=== PATIENT | female | born 1965 | race Caucasian/White ===

== ENCOUNTER 2016-06-09 12:45 | Inpatient (IN) | payer BC ==
[2016-06-09] MEDS ORDERED: IPRATROPIUM-ALBUTEROL 3 ML NEB INHALATION STA (14:07)
[2016-06-09] MEDS ORDERED: methylPREDNISolone SOD SUCCI 125 MG/2 ML VIAL IV STA (14:07)
--- NOTE | 2016-06-09 14:08 | ED ---
General Adult HPI <Derrek Suggs - Last Filed: 06/09/16 15:03> - General Source: patient, RN notes reviewed Mode of arrival: ambulatory Limitations: no limitations <Srinivas Cabello - Last Filed: 06/09/16 15:07> - General Chief complaint: Shortness of Breath Stated complaint: Dr Sent/Direct Admit Time Seen by Provider: 06/09/16 14:03 - History of Present Illness Initial comments: Patient 51-year-old female significant past medical history for asthma, who presents emergency room today with chief complaint of increased cough congestion over the last week. 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 Patient does admit that she was on antibiotics along with oral steroids that she finished yesterday. States she has felt a little improvement of her symptoms. She denies any other complaints associated symptoms at this time. Patient denies any recent fever, chills, shortness of breath, chest pain, back pain, abdominal pain, nausea or vomiting, numbness or tingling, dysuria or hematuria, constipation or diarrhea, headaches or visual changes, or any other complaints. (Srinivas Cabello) - Related Data Home Medications Medication Instructions Recorded Confirmed Albuterol Nebulized [Ventolin 2.5 mg INHALATION RT-TID PRN 05/28/15 06/09/16 Nebulized] Atorvastatin [Lipitor] 40 mg PO DAILY 05/28/15 06/09/16 Cetirizine HCl [Zyrtec] 10 mg PO DAILY 05/28/15 06/09/16 DULoxetine HCL [Cymbalta] 30 mg PO DAILY 05/28/15 06/09/16 Ibuprofen [Motrin] 800 mg PO DAILY PRN 05/28/15 06/09/16 Montelukast Sodium [Singulair] 10 mg PO DAILY 05/28/15 06/09/16 Omalizumab [Xolair] 300 mg PO Q14D 05/28/15 06/09/16 Pantoprazole Sodium [Protonix] 20 mg PO DAILY 05/28/15 06/09/16 Allergies Allergy/AdvReac Type Severity Reaction Status Date / Time Penicillins AdvReac Rash/Hives Verified 06/09/16 14:54 Review of Systems ROS Other: All systems not noted in ROS Statement are negative. <Derrek Suggs - Last Filed: 06/09/16 15:03> ROS Other: All systems not noted in ROS Statement are negative. <Srinivas Cabello - Last Filed: 06/09/16 15:07> ROS Statement: Those systems with pertinent positive or pertinent negative responses have been documented in the HPI. Past Medical History Past Medical History: Asthma, Cancer, Hyperlipidemia, Sleep Apnea/CPAP/BIPAP Additional Past Medical History / Comment(s): FAILED STRESS TEST, CURRENT CYSTS ON OVARIES, HX OF CERVICAL CA History of Any Multi-Drug Resistant Organisms: None Reported Past Surgical History: Section, Hysterectomy, Tubal Ligation Additional Past Surgical History / Comment(s): PARTIAL HYST, BREAST BX X2, CONE BX CERV CA Past Anesthesia/Blood Transfusion Reactions: Postoperative Nausea & Vomiting ( PONV) Past Psychological History: Anxiety, Depression Smoking Status: Never smoker Past Alcohol Use History: Rare Past Drug Use History: None Reported - Past Family History Father Family Medical History: Cancer Additional Family Medical History / Comment(s): LUNG, COLON <Srinivas Cabello - Last Filed: 06/09/16 15:07> General Exam <Derrek Suggs - Last Filed: 06/09/16 15:03> Limitations: no limitations <Srinivas Cabello - Last Filed: 06/09/16 15:07> - General Exam Comments Initial Comments: General: The patient is awake and alert, in no distress, and does not appear acutely ill. Eye: Pupils are equal, round and reactive to light, extra-ocular movements are intact. No nystagmus. There is normal conjunctiva bilaterally. No signs of icterus. Ears, nose, mouth and throat: There are moist mucous membranes and no oral lesions. Neck: The neck is supple, there is no tenderness or JVD. Cardiovascular: There is a regular rate and rhythm. No murmur, rub or gallop is appreciated. Respiratory: Lungs are clear to auscultation, respirations are non-labored, breath sounds are equal. No wheezes, stridor, rales, or rhonchi. Gastrointestinal: Soft, non-distended, non-tender abdomen without masses or organomegaly noted. There is no rebound or guarding present. No CVA tenderness. Bowel sounds are unremarkable. Musculoskeletal: Normal ROM, no tenderness. Strength 5/5. Sensation intact. Pulses equal bilaterally 2+. Neurological: A&O x 3. CN II-XII intact, There are no obvious motor or sensory deficits. Coordination appears grossly intact. Speech is normal. Skin: Skin is warm and dry and no rashes or lesions are noted. Psychiatric: Cooperative, appropriate mood & affect, normal judgment. (Srinivas Cabello) Course <Derrek Suggs - Last Filed: 06/09/16 15:03> <Srinivas Cabello - Last Filed: 06/09/16 15:07> Vital Signs 06/09/16 06/09/16 06/09/16 13:07 14:19 14:29 Temperature 98.5 F Pulse Rate 86 88 86 Respiratory 20 Rate Blood Pressure 196/83 O2 Sat by Pulse 98 Oximetry - Reevaluation(s) Reevaluation #1: 06/09/16 15:03 Patient does not meet sepsis criteria. Patient reexamined by myself, Dr. Suggs. Patient does have some wheezing and right lower lobe rhonchi. Case discussed with Dr. Shen, who will admit for Dr. Marlow. (Derrek Suggs) Medical Decision Making - Lab Data Result diagrams: 06/09/16 14:27 06/09/16 14:27 <Derrek Suggs - Last Filed: 06/09/16 15:03> - Lab Data Result diagrams: 06/09/16 14:27 06/09/16 14:27 <Srinivas Cabello - Last Filed: 06/09/16 15:07> - Lab Data Lab Results 06/09/16 06/09/16 06/09/16 Range/Units 14:27 14:27 14:48 WBC 5.6 (3.8-10.6) k/uL RBC 4.60 (3.80-5.40) m/uL Hgb 13.5 (11.4-16.0) gm/dL Hct 40.1 (34.0-46.0) % MCV 87.2 (80.0-100.0) fL MCH 29.3 (25.0-35.0) pg MCHC 33.6 (31.0-37.0) g/dL RDW 14.3 (11.5-15.5) % Plt Count 307 (150-450) k/uL Neutrophils % 61 % Lymphocytes % 30 % Monocytes % 7 % Eosinophils % 1 % Basophils % 0 % Neutrophils # 3.4 (1.3-7.7) k/uL Lymphocytes # 1.7 (1.0-4.8) k/uL Monocytes # 0.4 (0-1.0) k/uL Eosinophils # 0.1 (0-0.7) k/uL Basophils # 0.0 (0-0.2) k/uL Sodium 143 (137-145) mmol/L Potassium 3.5 (3.5-5.1) mmol/L Chloride 100 (98-107) mmol/L Carbon Dioxide 34 H (22-30) mmol/L Anion Gap 9 mmol/L BUN 9 (7-17) mg/dL Creatinine 0.70 (0.52-1.04) mg/dL Est GFR (MDRD) Af Amer >60 (>60 ml/min/1.73 sqM) Est GFR (MDRD) Non-Af >60 (>60 ml/min/1.73 sqM) Glucose 101 H (74-99) mg/dL Calcium 9.0 (8.4-10.2) mg/dL Total Bilirubin 1.0 (0.2-1.3) mg/dL AST 30 (14-36) U/L ALT 46 (9-52) U/L Alkaline Phosphatase 115 (38-126) U/L Total Protein 6.7 (6.3-8.2) g/dL Albumin 3.9 (3.5-5.0) g/dL Urine Color Light Yellow Urine Appearance Clear (Clear) Urine pH 7.0 (5.0-8.0) Ur Specific [place] 1.007 (1.001-1.035) Urine Protein Negative (Negative) Urine Glucose (UA) Negative (Negative) Urine Ketones Negative (Negative) Urine Blood Negative (Negative) Urine Nitrite Negative (Negative) Urine Bilirubin Negative (Negative) Urine Urobilinogen <2.0 (<2.0) mg/dL Ur Leukocyte Esterase Negative (Negative) Disposition <Derrek Suggs - Last Filed: 06/09/16 15:03> Time of Disposition: 15:04 <Srinivas Cabello - Last Filed: 06/09/16 15:07> Clinical Impression: Asthmatic bronchitis Disposition: ADMITTED IP TO THIS HOSP Condition: Good
[2016-06-09 14:43] LABS: Basophils % (A) 0 %; CH 29.6; CHCM 34.1; Eosinophils # (A) 0.1 k/uL (0-0.7); Eosinophils % (A) 1 %; HCT 40.1 % (34.0-46.0); HDW 3.03; HGB 13.5 gm/dL (11.4-16.0); Luc # (Auto) 0.06; Luc % (Auto) 1; Lymphocytes # (A) 1.7 k/uL (1.0-4.8); Lymphocytes % (A) 30 %; MCH 29.3 pg (25.0-35.0); MCHC 33.6 g/dL (31.0-37.0); MCV 87.2 fL (80.0-100.0); Mean Platelet Volume 6.8; Monocytes # (A) 0.4 k/uL (0-1.0); Monocytes % (A) 7 %; Neutrophils # (A) 3.4 k/uL (1.3-7.7); Neutrophils % (A) 61 %; RDW 14.3 % (11.5-15.5); WBC 5.6 k/uL (3.8-10.6); WBC (Perox) 5.51
[2016-06-09 14:50] LABS: ALT 46 U/L (9-52); AST 30 U/L (14-36); Alkaline Phosphatase 115 U/L (38-126); Anion Gap 9 mmol/L; Blood Urea Nitrogen 9 mg/dL (7-17); Carbon Dioxide 34 mmol/L (22-30); Chloride 100 mmol/L (98-107); Glucose 101 mg/dL (74-99); Non-African American GFR(MDRD) >60 (>60 ml/min/1.73 sqM); Potassium 3.5 mmol/L (3.5-5.1); Sodium 143 mmol/L (137-145); Total Protein 6.7 g/dL (6.3-8.2)
--- NOTE | 2016-06-09 14:52 | XR ---
EXAMINATION TYPE: XR chest 2V DATE OF EXAM: 06/09/2016 2:42 PM COMPARISON: NONE HISTORY: Shortness of breath TECHNIQUE: Frontal and lateral views of the chest are obtained. FINDINGS: Scattered senescent parenchymal changes noted. Hyperinflation compatible with COPD. No evidence for infiltrate. No evidence for atelectasis. Heart size is stable. Mediastinal structures are stable and grossly unremarkable. No evidence for hilar prominence. Degenerative changes dorsal spine. IMPRESSION: 1. No evidence for acute pulmonary disease.
[2016-06-09 14:59] LABS: Appearance,Urine Clear (Clear); Bilirubin,Urine Negative (Negative); Glucose,Urine (UA) Negative (Negative); Ketones,Urine Negative (Negative); Leukocyte Esterase,Urine Negative (Negative); Nitrite,Urine Negative (Negative); Protein,Urine Negative (Negative); Specific Gravity,Urine 1.007 (1.001-1.035); UA Billing (MACRO vs. MICRO) CHEM; Urobilinogen,Urine <2.0 mg/dL (<2.0)
[2016-06-09] MEDS ORDERED: SODIUM CHLORIDE 0.9% 1,000 ML IV ONE (15:03)
[2016-06-09] MEDS ORDERED: IPRATROPIUM-ALBUTEROL 3 ML NEB INHALATION PRN (15:03)
[2016-06-09] MEDS ORDERED: LEVOFLOXACIN 500MG-D5W PMX 500 MG in DEXTROSE/WATER 1 100ML.BAG IVPB STA (15:05)
[2016-06-09 16:34] VITALS: BMI 49.1
[2016-06-09] MEDS: methylPREDNISolone SOD SUCCI 125 MG/2 ML VIAL IV SCH (18:50)
[2016-06-10] MEDS ORDERED: methylPREDNISolone SOD SUCCI 125 MG/2 ML VIAL ONE
[2016-06-10] MEDS: methylPREDNISolone SOD SUCCI 125 MG/2 ML VIAL IV SCH ×5 (06:30→17:59)
[2016-06-10] MEDS ORDERED: Potassium Replacement Protocol 1 EACH MISC MISCELLANE PRN (08:19)
[2016-06-10 08:52] LABS: Basophils % (A) 0 %; CH 29.9; CHCM 34.2; Eosinophils % (A) 0 %; HCT 39.8 % (34.0-46.0); HDW 3.07; Luc # (Auto) 0.04; Luc % (Auto) 1; Lymphocytes # (A) 0.5 k/uL (1.0-4.8); Lymphocytes % (A) 11 %; MCH 28.7 pg (25.0-35.0); MCHC 32.7 g/dL (31.0-37.0); MCV 87.8 fL (80.0-100.0); Mean Platelet Volume 6.9; Monocytes # (A) 0.1 k/uL (0-1.0); Monocytes % (A) 2 %; Neutrophils # (A) 4.2 k/uL (1.3-7.7); Neutrophils % (A) 86 %; RBC 4.54 m/uL (3.80-5.40); WBC 4.8 k/uL (3.8-10.6); WBC (Perox) 5.07
[2016-06-10 09:04] LABS: ALT 38 U/L (9-52); AST 20 U/L (14-36); Alkaline Phosphatase 100 U/L (38-126); Anion Gap 11 mmol/L; Blood Urea Nitrogen 10 mg/dL (7-17); Calcium 9.2 mg/dL (8.4-10.2); Carbon Dioxide 30 mmol/L (22-30); Chloride 98 mmol/L (98-107); Glucose 262 mg/dL (74-99); Non-African American GFR(MDRD) >60 (>60 ml/min/1.73 sqM); Potassium 4.1 mmol/L (3.5-5.1); Sodium 139 mmol/L (137-145); Total Bilirubin 1.1 mg/dL (0.2-1.3); Total Protein 6.8 g/dL (6.3-8.2)
[2016-06-10] MEDS: BUDESONIDE 0.5 MG/2 ML NEBU INHALATION SCH ×2 (09:27→20:53)
[2016-06-10] MEDS: ENOXAPARIN 40 MG/0.4 ML SYRINGE SQ SCH (09:53)
[2016-06-10] MEDS: MONTELUKAST 10 MG TAB PO SCH (09:53)
[2016-06-10] MEDS: DULoxetine HCL 30 MG CAPSULE.DR PO SCH (09:53)
[2016-06-10] MEDS: guaiFENesin 600 MG TABLET.ER PO SCH ×2 (09:54→21:15)
[2016-06-10] MEDS: PANTOPRAZOLE 40 MG TABLET PO SCH (09:54)
[2016-06-10] MEDS: LORATADINE 10 MG TAB PO SCH (09:55)
[2016-06-10] MEDS: ATORVASTATIN 40 MG TAB PO SCH (09:55)
--- NOTE | 2016-06-10 10:01 | P.HPIM ---
History of Present Illness H&P Date: 06/10/16 Chief Complaint: Cough with shortness of breath This is a 51-year-old female, patient of Dr. Marlow. She has a known past medical history of asthma, hyperlipidemia, obstructive sleep apnea and cervical cancer. Patient presents to the emergency room due to productive cough and shortness of breath that did not improve with outpatient treatment. Patient reports that she's been suffering with symptoms for about 2 weeks. She initially went to the urgent care clinic received steroids and antibiotics. Did not show improvement in symptoms therefore she will return to the clinic she was given dose of IV steroids and IV antibiotics. She went to follow-up with her crystal lapper, Dr. Snyder in the office for her routine Xolair injections. However she was still symptomatic with cough and shortness of breath and he recommended that she presents to the hospital. Therefore patient is now on IV Solu-Medrol and Levaquin for treatment of asthma exacerbation and bronchitis. Chest x-ray was negative. She also is having some elevated blood pressures. When she initially presented to the emergency room her blood pressure was 196/88. Blood pressure this morning is 148/94. She reports being on Norvasc in the past for about a month and her metal tube cutter had discontinued it due to her blood pressure being on the lower side. Patient does admit to having some low-grade temps when she initially started with symptoms. As well as some chills and sweats. She denies any chest pain. Denies any nausea or vomiting, bowel movement changes or urinary symptoms. Pulmonary service has been consulted. Review of Systems Please refer to HPI otherwise unremarkable Past Medical History Past Medical History: Asthma, Cancer, Hyperlipidemia, Sleep Apnea/CPAP/BIPAP Additional Past Medical History / Comment(s): FAILED STRESS TEST, CURRENT CYSTS ON OVARIES, HX OF CERVICAL CA History of Any Multi-Drug Resistant Organisms: None Reported Past Surgical History: Section, Hysterectomy, Tubal Ligation Additional Past Surgical History / Comment(s): PARTIAL HYST, BREAST BX X2, CONE BX CERV CA Past Anesthesia/Blood Transfusion Reactions: Postoperative Nausea & Vomiting ( PONV) Past Psychological History: Anxiety, Depression Smoking Status: Never smoker Past Alcohol Use History: Rare Past Drug Use History: None Reported - Past Family History Father Family Medical History: Cancer Additional Family Medical History / Comment(s): LUNG, COLON Medications and Allergies Home Medications Medication Instructions Recorded Confirmed Type Albuterol Nebulized [Ventolin 2.5 mg INHALATION RT-TID PRN 05/28/15 06/09/16 History Nebulized] Atorvastatin [Lipitor] 40 mg PO DAILY 05/28/15 06/09/16 History Cetirizine HCl [Zyrtec] 10 mg PO DAILY 05/28/15 06/09/16 History DULoxetine HCL [Cymbalta] 30 mg PO DAILY 05/28/15 06/09/16 History Ibuprofen [Motrin] 800 mg PO DAILY PRN 05/28/15 06/09/16 History Montelukast Sodium [Singulair] 10 mg PO DAILY 05/28/15 06/09/16 History Omalizumab [Xolair] 300 mg PO Q14D 05/28/15 06/09/16 History Pantoprazole Sodium [Protonix] 20 mg PO DAILY 05/28/15 06/09/16 History Allergies Allergy/AdvReac Type Severity Reaction Status Date / Time Penicillins Allergy Mild Rash/Hives Verified 06/09/16 16:34 Physical Exam Vitals: Vital Signs Temp Pulse Pulse Pulse Resp BP BP 06/10/16 07:30 97.4 F L 78 20 148/94 06/10/16 00:00 20 06/09/16 22:32 97.6 F 68 20 124/70 06/09/16 20:37 24 06/09/16 20:30 97.1 F L 80 20 132/73 06/09/16 17:00 97.1 F L 80 24 130/76 06/09/16 16:30 24 06/09/16 15:24 98.8 F 78 16 120/61 Pulse Ox 06/10/16 07:30 96 06/10/16 00:00 06/09/16 22:32 97 06/09/16 20:37 06/09/16 20:30 98 06/09/16 17:00 94 L 06/09/16 16:30 06/09/16 15:24 96 Intake and Output 06/09/16 06/10/16 06/10/16 22:59 06:59 14:59 Other: Voiding Method Toilet Toilet # Voids 1 Weight 142.3 kg Head normocephalic Neck supple Lungs few coarse breath sounds posteriorly. A few faint wheezes anterior chest wall Heart regular rate and rhythm S1-S2, no rub or gallop Abdomen is soft nontender nondistended positive bowel sounds no hepatosplenomegaly Extremities no edema Neuro alert and orientated to 3 Results CBC & Chem 7: 06/10/16 08:43 06/10/16 08:43 Labs: Abnormal Lab Results - Last 24 Hours (Table) 06/10/16 06/10/16 Range/Units 08:43 08:43 Lymphocytes # 0.5 L (1.0-4.8) k/uL Glucose 262 H (74-99) mg/dL Thrombosis Risk Factor Assmnt - Choose All That Apply Any of the Below Risk Factors Present?: Yes Each Factor Represents 1 point: Age 41-60 years, Obesity (BMI >25) Other Risk Factors: No Other congenital or acquired thrombophilia - If yes, enter type in comment: No Thrombosis Risk Factor Assessment Total Risk Factor Score: 2 Thrombosis Risk Factor Assessment Level: Low Risk Assessment and Plan Plan: 1. Acute persistent asthma exacerbation: Failed outpatient treatment. Place patient on nebulizer treatments 4 times a day and as needed. Pulmonary service has been consulted. They did add Pulmicort to her treatment 2. Acute tracheobronchitis: Chest x-ray shows no evidence of pneumonia. Continue Levaquin. Patient failed outpatient antibiotic treatment. Check sputum culture 3. Accelerated hypertension present on admission. Continue to monitor blood pressures. Blood pressures have shown improvement. 4. Mild hypokalemia:. Patient received potassium supplement. Potassium normal at 4.1 5. Hyperglycemia secondary to steroids. Patient was started on insulin sliding scale 6. Hyperlipidemia continue Lipitor 7. History of obstructive sleep apnea. Patient has her CPAP from home 8. GI prophylaxis Protonix and DVT prophylaxis Lovenox Time with Patient: Greater than 30 (Greater than 50% of the total time spent in counseling and coordination of care.I performed an examination of the patient and discussed their management with the physician Swimming Pool Installer And Servicer. I have reviewed the Physician Swimming Pool Installer And Servicer's notes and agree with the documented findings and plan of care)
--- NOTE | 2016-06-10 10:25 | P.CNPUL ---
History of Present Illness Consult date: 06/10/16 Requesting physician: Cedrick Marinelli Reason for consult: asthma Chief complaint: Shortness of breath History of present illness: This is a 51-year-old patient being evaluated and examined today on the sixth floor. This patient is well-known to our office. This patient came into the emergency room after being seen and off fast and failed outpatient therapy. The patient had a progressive productive cough and shortness of breath that's been going on for about 2 weeks without any significant improvement. First the patient went to the urgent care clinic where she did receive steroids and antibiotics after not improving she then went to our office and we advised her to the emergency room. The patient is known to have extensive asthma and does receive Xolair injections. Upon examination the patient is resting up in bed in stage she continues to have some shortness of breath with exertion. The patient continues to complain of a cough for over is having difficulty bringing up the secretions stating they are very thick. Review of Systems 14 point review of systems was completed and is negative other than what's noted in the HPI Past Medical History Past Medical History: Asthma, Cancer, Hyperlipidemia, Sleep Apnea/CPAP/BIPAP Additional Past Medical History / Comment(s): FAILED STRESS TEST, CURRENT CYSTS ON OVARIES, HX OF CERVICAL CA History of Any Multi-Drug Resistant Organisms: None Reported Past Surgical History: Section, Hysterectomy, Tubal Ligation Additional Past Surgical History / Comment(s): PARTIAL HYST, BREAST BX X2, CONE BX CERV CA Past Anesthesia/Blood Transfusion Reactions: Postoperative Nausea & Vomiting ( PONV) Past Psychological History: Anxiety, Depression Smoking Status: Never smoker Past Alcohol Use History: Rare Past Drug Use History: None Reported - Past Family History Father Family Medical History: Cancer Additional Family Medical History / Comment(s): LUNG, COLON Medications and Allergies Home Medications Medication Instructions Recorded Confirmed Type Albuterol Nebulized [Ventolin 2.5 mg INHALATION RT-TID PRN 05/28/15 06/09/16 History Nebulized] Atorvastatin [Lipitor] 40 mg PO DAILY 05/28/15 06/09/16 History Cetirizine HCl [Zyrtec] 10 mg PO DAILY 05/28/15 06/09/16 History DULoxetine HCL [Cymbalta] 30 mg PO DAILY 05/28/15 06/09/16 History Ibuprofen [Motrin] 800 mg PO DAILY PRN 05/28/15 06/09/16 History Montelukast Sodium [Singulair] 10 mg PO DAILY 05/28/15 06/09/16 History Omalizumab [Xolair] 300 mg PO Q14D 05/28/15 06/09/16 History Pantoprazole Sodium [Protonix] 20 mg PO DAILY 05/28/15 06/09/16 History Allergies Allergy/AdvReac Type Severity Reaction Status Date / Time Penicillins Allergy Mild Rash/Hives Verified 06/09/16 16:34 Physical Exam Vitals: Vital Signs Temp Pulse Pulse Pulse Resp BP BP 06/10/16 09:49 132/77 06/10/16 07:30 97.4 F L 78 20 148/94 06/10/16 00:00 20 06/09/16 22:32 97.6 F 68 20 124/70 06/09/16 20:37 24 06/09/16 20:30 97.1 F L 80 20 132/73 06/09/16 17:00 97.1 F L 80 24 130/76 06/09/16 16:30 24 06/09/16 15:24 98.8 F 78 16 120/61 Pulse Ox 06/10/16 09:49 06/10/16 07:30 96 06/10/16 00:00 06/09/16 22:32 97 06/09/16 20:37 06/09/16 20:30 98 06/09/16 17:00 94 L 06/09/16 16:30 06/09/16 15:24 96 Intake and Output 06/09/16 06/10/16 06/10/16 22:59 06:59 14:59 Other: Voiding Method Toilet Toilet # Voids 1 Weight 142.3 kg GENERAL EXAM: Alert, active, comfortable in no apparent distress. HEAD: Normocephalic. EYES: Normal reaction of pupils, equal size. NOSE: Clear with pink turbinates. THROAT: No erythema or exudates. NECK: No masses, no JVD. CHEST: No chest wall deformity. LUNGS: Equal air entry which are coarse, prolonged expiratory wheezes noted. CVS: S1 and S2 normal with no audible mumurs, regular rhythm. ABDOMEN: No hepatosplenomegaly, normal bowel sounds, no guarding or rigidity. EXTREMITIES: No edema noted, pedal pulses palpable. SKIN: No rashes CENTRAL NERVOUS SYSTEM: No focal deficits, tone is normal in all 4 extremities. Results - Laboratory Findings CBC and BMP: 06/10/16 08:43 06/10/16 08:43 Abnormal lab findings: Abnormal Labs 06/10/16 06/10/16 08:43 08:43 Lymphocytes # 0.5 L Glucose 262 H Assessment and Plan Plan: Assessment Acute tracheobronchitis Acute exacerbation of severe persistent asthma Obstructive sleep apnea Hypertension Hypokalemia Hyperglycemia related to steroids Hyperlipidemia Plan Medications have been reviewed and will be continued as ordered. We added budesonide to her nebulizer treatments. His next was added to help with secretions. Continue with CPAP at night. Continue with IV steroids and antibiotics. We'll obtain sputum culture and flu swab. Replace electrolytes per protocol. Incentive spirometer initiated and encouraged. We will continue to monitor labs/results and adjust treatment as necessary. I performed an examination of the patient and discussed their management with the nurse practitioner. I have reviewed the nurse practitioner's note and agree with the documented findings and plan of care.
[2016-06-10] MEDS: INSULIN LISPRO (humaLOG) 300 UNIT/3 ML VIAL SQ SCH ×3 (12:03→21:16)
[2016-06-10 12:10] LABS: Glucose,Whole Blood 128 mg/dL (75-99)
[2016-06-10] MEDS: POTASSIUM CHLORIDE ER 20 MEQ TAB.ER PO SCH (12:11)
[2016-06-10] MEDS: IPRATROPIUM-ALBUTEROL 3 ML NEB INHALATION SCH ×3 (12:15→20:53)
[2016-06-10 12:28] LABS: Hemoglobin A1C 6.3 % (4.2-6.1)
[2016-06-10] MEDS: amLODIPine 2.5 MG TAB PO SCH (13:38)
[2016-06-10] MEDS: LEVOFLOXACIN 500MG-D5W PMX 500 MG in DEXTROSE/WATER 1 100ML.BAG IVPB SCH (16:15)
[2016-06-10 17:03] LABS: Glucose,Whole Blood 320 mg/dL (75-99)
[2016-06-10] MEDS ORDERED: INSULIN LISPRO (humaLOG) 300 UNIT/3 ML VIAL SQ ONE (17:47)
[2016-06-10 21:05] LABS: Glucose,Whole Blood 176 mg/dL (75-99)
[2016-06-11] MEDS: methylPREDNISolone SOD SUCCI 125 MG/2 ML VIAL IV SCH ×3 (00:04→13:10)
[2016-06-11 06:58] LABS: Glucose,Whole Blood 174 mg/dL (75-99)
[2016-06-11] MEDS: INSULIN LISPRO (humaLOG) 300 UNIT/3 ML VIAL SQ SCH ×4 (06:59→21:14)
[2016-06-11] MEDS: PANTOPRAZOLE 40 MG TABLET PO SCH (07:02)
[2016-06-11 07:13] LABS: Basophils % (A) 0 %; CH 29.4; Eosinophils % (A) 0 %; HCT 36.7 % (34.0-46.0); HDW 2.87; HGB 12.4 gm/dL (11.4-16.0); Luc # (Auto) 0.05; Luc % (Auto) 1; Lymphocytes # (A) 0.5 k/uL (1.0-4.8); Lymphocytes % (A) 6 %; MCH 30.2 pg (25.0-35.0); MCHC 33.8 g/dL (31.0-37.0); MCV 89.4 fL (80.0-100.0); Mean Platelet Volume 6.8; Monocytes # (A) 0.2 k/uL (0-1.0); Monocytes % (A) 2 %; Neutrophils # (A) 7.9 k/uL (1.3-7.7); Neutrophils % (A) 91 %; RBC 4.11 m/uL (3.80-5.40); RDW 14.4 % (11.5-15.5); WBC 8.7 k/uL (3.8-10.6); WBC (Perox) 9.18
[2016-06-11 07:29] LABS: ALT 27 U/L (9-52); AST 16 U/L (14-36); Alkaline Phosphatase 87 U/L (38-126); Anion Gap 11 mmol/L; Blood Urea Nitrogen 14 mg/dL (7-17); Calcium 9.2 mg/dL (8.4-10.2); Carbon Dioxide 30 mmol/L (22-30); Chloride 102 mmol/L (98-107); Glucose 177 mg/dL (74-99); Non-African American GFR(MDRD) >60 (>60 ml/min/1.73 sqM); Potassium 3.7 mmol/L (3.5-5.1); Sodium 143 mmol/L (137-145); Total Bilirubin 0.6 mg/dL (0.2-1.3); Total Protein 6.5 g/dL (6.3-8.2)
[2016-06-11] MEDS: ENOXAPARIN 40 MG/0.4 ML SYRINGE SQ SCH (07:52)
[2016-06-11] MEDS: guaiFENesin 600 MG TABLET.ER PO SCH ×2 (07:52→20:57)
[2016-06-11] MEDS: ATORVASTATIN 40 MG TAB PO SCH (07:53)
[2016-06-11] MEDS: LORATADINE 10 MG TAB PO SCH (07:53)
[2016-06-11] MEDS: amLODIPine 2.5 MG TAB PO SCH (07:53)
[2016-06-11] MEDS: MONTELUKAST 10 MG TAB PO SCH (07:55)
[2016-06-11] MEDS: DULoxetine HCL 30 MG CAPSULE.DR PO SCH (07:55)
[2016-06-11] MEDS: IBUPROFEN 800 MG TAB PO PRN (08:43)
[2016-06-11] MEDS: BUDESONIDE 0.5 MG/2 ML NEBU INHALATION SCH ×2 (09:09→19:07)
[2016-06-11] MEDS: IPRATROPIUM-ALBUTEROL 3 ML NEB INHALATION SCH ×4 (09:09→19:07)
[2016-06-11 12:42] LABS: Glucose,Whole Blood 167 mg/dL (75-99)
--- NOTE | 2016-06-11 15:16 | P.PN ---
Subjective Patient is doing fairly well today. She does not have any shortness of breath Objective - Vital Signs Vital signs: Vital Signs Temp 98.1 F 06/11/16 13:27 Pulse 83 06/11/16 14:44 Resp 20 06/11/16 13:27 BP 150/93 06/11/16 14:44 Pulse Ox 95 06/11/16 13:27 Intake & Output 06/10/16 06/11/16 06/11/16 18:59 06:59 18:59 Intake Total 400 Balance 400 Intake: Oral 400 Other: Voiding Method Toilet # Voids 1 1 - Exam General: The patient is awake and alert, in no distress Eye: there is normal conjunctiva bilaterally. Neck: The neck is supple, there is no JVD. Cardiovascular: Normal S1-S2, no S3-S4, no murmurs. Respiratory: Lungs clear to auscultation bilaterally Gastrointestinal: Abdomen is soft, nontender Musculoskeletal: There is no pedal edema. Neurological:. Speech is normal. Skin: Skin is warm and dry - Labs CBC & Chem 7: 06/11/16 07:01 06/11/16 07:01 Labs: Abnormal Lab Results - Last 24 Hours (Table) 06/10/16 06/10/16 06/11/16 Range/Units 16:58 21:02 06:56 Neutrophils # (1.3-7.7) k/uL Lymphocytes # (1.0-4.8) k/uL Glucose (74-99) mg/dL POC Glucose (mg/dL) 320 H 176 H 174 H (75-99) mg/dL 06/11/16 06/11/16 06/11/16 Range/Units 07:01 07:01 12:38 Neutrophils # 7.9 H (1.3-7.7) k/uL Lymphocytes # 0.5 L (1.0-4.8) k/uL Glucose 177 H (74-99) mg/dL POC Glucose (mg/dL) 167 H (75-99) mg/dL Microbiology - Last 24 Hours (Table) 06/10/16 16:40 Gram Stain - Preliminary Sputum Sputum Culture - Preliminary Assessment and Plan Plan: 1. Acute persistent asthma exacerbation: Failed outpatient treatment. Place patient on nebulizer treatments 4 times a day and as needed. Pulmonary service has been consulted. They did add Pulmicort to her treatment 2. Acute tracheobronchitis: Chest x-ray shows no evidence of pneumonia. Continue Levaquin. Patient failed outpatient antibiotic treatment. Check sputum culture 3. Accelerated hypertension present on admission. Continue to monitor blood pressures. Blood pressures have shown improvement. 4. Mild hypokalemia:. Patient received potassium supplement. Potassium normal at 4.1 5. Hyperglycemia secondary to steroids. Patient was started on insulin sliding scale 6. Hyperlipidemia continue Lipitor 7. History of obstructive sleep apnea. Patient has her CPAP from home 8. GI prophylaxis Protonix and DVT prophylaxis Lovenox Awaiting clearance by pulmonology for discharge
[2016-06-11] MEDS: LEVOFLOXACIN 500MG-D5W PMX 500 MG in DEXTROSE/WATER 1 100ML.BAG IVPB SCH (16:00)
--- NOTE | 2016-06-11 16:22 | P.PN ---
Subjective This is a 51-year-old patient being evaluated and examined today on the sixth floor. This patient is well-known to our office. This patient came into the emergency room after being seen in the office and had failed outpatient therapy. The patient had a progressive productive cough and shortness of breath that had been going on for about 2 weeks without any significant improvement. First the patient went to the urgent care clinic where she did receive steroids and antibiotics after not improving she then went to our office and we advised her to go to the emergency room. The patient is known to have extensive asthma and does receive Xolair injections. Upon examination the patient's resting up in bed on room air she continues to have some shortness of breath with exertion. The patient continues to complain of a cough and continues to have difficulty with bringing up of secretions. Objective - Vital Signs Vital signs: Vital Signs Temp 97.7 F 06/11/16 16:15 Pulse 77 06/11/16 16:15 Resp 20 06/11/16 16:15 BP 133/67 06/11/16 16:15 Pulse Ox 94 L 06/11/16 16:15 Intake & Output 06/10/16 06/11/16 06/11/16 18:59 06:59 18:59 Intake Total 400 Balance 400 Intake: Oral 400 Other: Voiding Method Toilet # Voids 1 1 1 - Exam GENERAL EXAM: Alert, active, comfortable in no apparent distress. HEAD: Normocephalic. EYES: Normal reaction of pupils, equal size. NOSE: Clear with pink turbinates. THROAT: No erythema or exudates. NECK: No masses, no JVD. CHEST: No chest wall deformity. LUNGS: Equal air entry with no crackles, rhonchi or dullness. Expiratory wheeze CVS: S1 and S2 normal with no audible mumurs, regular rhythm. ABDOMEN: No hepatosplenomegaly, normal bowel sounds, no guarding or rigidity. EXTREMITIES: No edema noted, pedal pulses palpable. SKIN: No rashes CENTRAL NERVOUS SYSTEM: No focal deficits, tone is normal in all 4 extremities. - Labs CBC & Chem 7: 06/11/16 07:01 06/11/16 07:01 Labs: Abnormal Lab Results - Last 24 Hours (Table) 06/10/16 06/10/16 06/11/16 Range/Units 16:58 21:02 06:56 Neutrophils # (1.3-7.7) k/uL Lymphocytes # (1.0-4.8) k/uL Glucose (74-99) mg/dL POC Glucose (mg/dL) 320 H 176 H 174 H (75-99) mg/dL 06/11/16 06/11/16 06/11/16 Range/Units 07:01 07:01 12:38 Neutrophils # 7.9 H (1.3-7.7) k/uL Lymphocytes # 0.5 L (1.0-4.8) k/uL Glucose 177 H (74-99) mg/dL POC Glucose (mg/dL) 167 H (75-99) mg/dL Microbiology - Last 24 Hours (Table) 06/10/16 16:40 Gram Stain - Preliminary Sputum Sputum Culture - Preliminary Assessment and Plan Plan: Assessment Acute tracheobronchitis Acute exacerbation of severe persistent asthma Obstructive sleep apnea Hypertension Hypokalemia Hyperglycemia related to steroids Hyperlipidemia Plan Medications have been reviewed and will be continued as ordered. Continue with nebulizer treatments and pulmonary hygiene. Mucinex was added to help with secretions. Continue with CPAP at night. Continue with IV steroids and antibiotics. Sputum culture pending, influenza was negative. Incentive spirometer initiated and encouraged. We will continue to monitor labs/results and adjust treatment as necessary. I performed an examination of the patient and discussed their management with the nurse practitioner. I have reviewed the nurse practitioner's note and agree with the documented findings and plan of care.
[2016-06-11 17:29] LABS: Glucose,Whole Blood 163 mg/dL (75-99)
[2016-06-11] MEDS: methylPREDNISolone SOD SUCCI 40 MG/ML 1 ML VIAL IV SCH (20:57)
[2016-06-11 21:13] LABS: Glucose,Whole Blood 247 mg/dL (75-99)
[2016-06-12 06:40] LABS: Basophils % (A) 0 %; CH 29.2; CHCM 32.4; Eosinophils % (A) 0 %; HCT 36.7 % (34.0-46.0); HDW 2.74; Luc # (Auto) 0.05; Luc % (Auto) 1; Lymphocytes # (A) 0.7 k/uL (1.0-4.8); Lymphocytes % (A) 9 %; MCH 29.6 pg (25.0-35.0); MCHC 32.7 g/dL (31.0-37.0); MCV 90.7 fL (80.0-100.0); Mean Platelet Volume 6.9; Monocytes # (A) 0.2 k/uL (0-1.0); Monocytes % (A) 3 %; Neutrophils # (A) 6.4 k/uL (1.3-7.7); Neutrophils % (A) 87 %; RBC 4.05 m/uL (3.80-5.40); RDW 14.7 % (11.5-15.5); WBC 7.4 k/uL (3.8-10.6); WBC (Perox) 7.89
[2016-06-12 06:51] LABS: ALT 34 U/L (9-52); AST 15 U/L (14-36); Alkaline Phosphatase 81 U/L (38-126); Anion Gap 9 mmol/L; Blood Urea Nitrogen 12 mg/dL (7-17); Carbon Dioxide 28 mmol/L (22-30); Chloride 104 mmol/L (98-107); Glucose 155 mg/dL (74-99); Non-African American GFR(MDRD) >60 (>60 ml/min/1.73 sqM); Potassium 4.1 mmol/L (3.5-5.1); Sodium 141 mmol/L (137-145); Total Bilirubin 0.6 mg/dL (0.2-1.3); Total Protein 6.2 g/dL (6.3-8.2)
[2016-06-12] MEDS: IPRATROPIUM-ALBUTEROL 3 ML NEB INHALATION SCH ×4 (07:25→19:18)
[2016-06-12] MEDS: BUDESONIDE 0.5 MG/2 ML NEBU INHALATION SCH ×2 (07:25→19:18)
[2016-06-12 07:30] LABS: Glucose,Whole Blood 133 mg/dL (75-99)
[2016-06-12] MEDS: INSULIN LISPRO (humaLOG) 300 UNIT/3 ML VIAL SQ SCH ×4 (07:44→21:04)
[2016-06-12] MEDS: PANTOPRAZOLE 40 MG TABLET PO SCH (07:45)
[2016-06-12] MEDS: MONTELUKAST 10 MG TAB PO SCH (09:17)
[2016-06-12] MEDS: LORATADINE 10 MG TAB PO SCH (09:17)
[2016-06-12] MEDS: DULoxetine HCL 30 MG CAPSULE.DR PO SCH (09:17)
[2016-06-12] MEDS: amLODIPine 2.5 MG TAB PO SCH (09:17)
[2016-06-12] MEDS: guaiFENesin 600 MG TABLET.ER PO SCH ×2 (09:17→21:08)
[2016-06-12] MEDS: ENOXAPARIN 40 MG/0.4 ML SYRINGE SQ SCH (09:17)
[2016-06-12] MEDS: ATORVASTATIN 40 MG TAB PO SCH (09:17)
[2016-06-12] MEDS: methylPREDNISolone SOD SUCCI 40 MG/ML 1 ML VIAL IV SCH ×2 (09:18→21:07)
[2016-06-12] MEDS: IBUPROFEN 800 MG TAB PO PRN (09:59)
--- NOTE | 2016-06-12 12:45 | P.PN ---
Subjective Patient is doing fairly well today. She does not have any shortness of breath Objective - Vital Signs Vital signs: Vital Signs Temp 97.7 F 06/12/16 09:13 Pulse 76 06/12/16 11:34 Resp 18 06/12/16 09:13 BP 132/66 06/12/16 09:13 Pulse Ox 96 06/12/16 09:13 Intake & Output 06/11/16 06/12/16 06/12/16 18:59 06:59 18:59 Intake Total 600 Balance 600 Intake: Oral 600 Other: # Voids 2 2 - Exam General: The patient is awake and alert, in no distress Eye: there is normal conjunctiva bilaterally. Neck: The neck is supple, there is no JVD. Cardiovascular: Normal S1-S2, no S3-S4, no murmurs. Respiratory: Lungs clear to auscultation bilaterally Gastrointestinal: Abdomen is soft, nontender Musculoskeletal: There is no pedal edema. Neurological:. Speech is normal. Skin: Skin is warm and dry - Labs CBC & Chem 7: 06/12/16 06:26 06/12/16 06:26 Labs: Abnormal Lab Results - Last 24 Hours (Table) 06/11/16 06/11/16 06/12/16 Range/Units 17:19 21:03 06:26 Lymphocytes # 0.7 L (1.0-4.8) k/uL Glucose (74-99) mg/dL POC Glucose (mg/dL) 163 H 247 H (75-99) mg/dL Total Protein (6.3-8.2) g/dL 06/12/16 06/12/16 Range/Units 06:26 07:28 Lymphocytes # (1.0-4.8) k/uL Glucose 155 H (74-99) mg/dL POC Glucose (mg/dL) 133 H (75-99) mg/dL Total Protein 6.2 L (6.3-8.2) g/dL Microbiology - Last 24 Hours (Table) 06/10/16 16:40 Gram Stain - Final Sputum Sputum Culture - Final Assessment and Plan Plan: 1. Acute persistent asthma exacerbation: Failed outpatient treatment. Place patient on nebulizer treatments 4 times a day and as needed. Pulmonary service has been consulted. They did add Pulmicort to her treatment 2. Acute tracheobronchitis: Chest x-ray shows no evidence of pneumonia. Continue Levaquin. Patient failed outpatient antibiotic treatment. Check sputum culture 3. Accelerated hypertension present on admission. Continue to monitor blood pressures. Blood pressures have shown improvement. 4. Mild hypokalemia:. Patient received potassium supplement. Potassium normal at 4.1 5. Hyperglycemia secondary to steroids. Patient was started on insulin sliding scale 6. Hyperlipidemia continue Lipitor 7. History of obstructive sleep apnea. Patient has her CPAP from home 8. GI prophylaxis Protonix and DVT prophylaxis Lovenox Awaiting clearance by pulmonology for discharge possibly tomorrow
[2016-06-12 13:02] LABS: Glucose,Whole Blood 162 mg/dL (75-99)
--- NOTE | 2016-06-12 13:39 | P.PN ---
Subjective This is a 51-year-old patient being evaluated and examined today on the sixth floor. This patient is well-known to our office. This patient came into the emergency room after being seen in the office and had failed outpatient therapy. The patient had a progressive productive cough and shortness of breath that had been going on for about 2 weeks without any significant improvement. First the patient went to the urgent care clinic where she did receive steroids and antibiotics after not improving she then went to our office and we advised her to go to the emergency room. The patient is known to have extensive asthma and does receive Xolair injections. Upon examination the patient's resting up in bed on room air she continues to have some shortness of breath with exertion. Patient states she's starting to feel better and her frequency of coughing has decreasing significantly. Objective - Vital Signs Vital signs: Vital Signs Temp 97.7 F 06/12/16 09:13 Pulse 76 06/12/16 11:34 Resp 18 06/12/16 09:13 BP 132/66 06/12/16 09:13 Pulse Ox 96 06/12/16 09:13 Intake & Output 06/11/16 06/12/16 06/12/16 18:59 06:59 18:59 Intake Total 600 Balance 600 Intake: Oral 600 Other: # Voids 2 2 - Exam GENERAL EXAM: Alert, active, comfortable in no apparent distress. HEAD: Normocephalic. EYES: Normal reaction of pupils, equal size. NOSE: Clear with pink turbinates. THROAT: No erythema or exudates. NECK: No masses, no JVD. CHEST: No chest wall deformity. LUNGS: Equal air entry with no crackles, rhonchi or dullness. Expiratory wheeze CVS: S1 and S2 normal with no audible mumurs, regular rhythm. ABDOMEN: No hepatosplenomegaly, normal bowel sounds, no guarding or rigidity. EXTREMITIES: No edema noted, pedal pulses palpable. SKIN: No rashes CENTRAL NERVOUS SYSTEM: No focal deficits, tone is normal in all 4 extremities. - Labs CBC & Chem 7: 06/12/16 06:26 06/12/16 06:26 Labs: Abnormal Lab Results - Last 24 Hours (Table) 06/11/16 06/11/16 06/12/16 Range/Units 17:19 21:03 06:26 Lymphocytes # 0.7 L (1.0-4.8) k/uL Glucose (74-99) mg/dL POC Glucose (mg/dL) 163 H 247 H (75-99) mg/dL Total Protein (6.3-8.2) g/dL 06/12/16 06/12/16 06/12/16 Range/Units 06:26 07:28 12:58 Lymphocytes # (1.0-4.8) k/uL Glucose 155 H (74-99) mg/dL POC Glucose (mg/dL) 133 H 162 H (75-99) mg/dL Total Protein 6.2 L (6.3-8.2) g/dL Microbiology - Last 24 Hours (Table) 06/10/16 16:40 Gram Stain - Final Sputum Sputum Culture - Final Assessment and Plan Plan: Assessment Acute tracheobronchitis Acute exacerbation of severe persistent asthma Obstructive sleep apnea Hypertension Hypokalemia Hyperglycemia related to steroids Hyperlipidemia Plan Patient could be discharged tomorrow from a pulmonary standpoint. Medications have been reviewed and will be continued as ordered. Continue with nebulizer treatments and pulmonary hygiene. Mucinex was added to help with secretions. Continue with CPAP at night. Continue with IV steroids and antibiotics. Sputum culture pending, influenza was negative. Incentive spirometer initiated and encouraged. We will continue to monitor labs/results and adjust treatment as necessary. I performed an examination of the patient and discussed their management with the nurse practitioner. I have reviewed the nurse practitioner's note and agree with the documented findings and plan of care.
[2016-06-12] MEDS ORDERED: LEVOFLOXACIN 500 MG TAB PO SCH (16:00)
[2016-06-12 17:35] LABS: Glucose,Whole Blood 146 mg/dL (75-99)
[2016-06-12 20:56] LABS: Glucose,Whole Blood 190 mg/dL (75-99)
[2016-06-13 01:00] VITALS: RESP 20
[2016-06-13 06:44] LABS: Basophils % (A) 0 %; CH 29.7; CHCM 33.4; Eosinophils % (A) 0 %; HCT 35.9 % (34.0-46.0); HGB 12.1 gm/dL (11.4-16.0); Luc # (Auto) 0.03; Luc % (Auto) 1; Lymphocytes # (A) 0.7 k/uL (1.0-4.8); Lymphocytes % (A) 13 %; MCHC 33.6 g/dL (31.0-37.0); MCV 89.4 fL (80.0-100.0); Monocytes # (A) 0.3 k/uL (0-1.0); Monocytes % (A) 5 %; Neutrophils # (A) 4.1 k/uL (1.3-7.7); Neutrophils % (A) 81 %; RBC 4.02 m/uL (3.80-5.40); RDW 14.3 % (11.5-15.5); WBC (Perox) 5.24
[2016-06-13 06:47] LABS: Glucose,Whole Blood 160 mg/dL (75-99)
[2016-06-13] MEDS: PANTOPRAZOLE 40 MG TABLET PO SCH (06:52)
[2016-06-13] MEDS: INSULIN LISPRO (humaLOG) 300 UNIT/3 ML VIAL SQ SCH ×2 (06:52→11:17)
[2016-06-13 07:12] LABS: ALT 32 U/L (9-52); AST 19 U/L (14-36); Alkaline Phosphatase 82 U/L (38-126); Anion Gap 7 mmol/L; Blood Urea Nitrogen 12 mg/dL (7-17); Calcium 8.9 mg/dL (8.4-10.2); Carbon Dioxide 32 mmol/L (22-30); Chloride 103 mmol/L (98-107); Glucose 161 mg/dL (74-99); Non-African American GFR(MDRD) >60 (>60 ml/min/1.73 sqM); Potassium 4.3 mmol/L (3.5-5.1); Sodium 142 mmol/L (137-145); Total Bilirubin 0.6 mg/dL (0.2-1.3)
[2016-06-13] MEDS: MONTELUKAST 10 MG TAB PO SCH (08:07)
[2016-06-13] MEDS: DULoxetine HCL 30 MG CAPSULE.DR PO SCH (08:07)
[2016-06-13] MEDS: guaiFENesin 600 MG TABLET.ER PO SCH (08:07)
[2016-06-13] MEDS: ATORVASTATIN 40 MG TAB PO SCH (08:08)
[2016-06-13] MEDS: methylPREDNISolone SOD SUCCI 40 MG/ML 1 ML VIAL IV SCH (08:08)
[2016-06-13] MEDS: ENOXAPARIN 40 MG/0.4 ML SYRINGE SQ SCH (08:08)
[2016-06-13] MEDS: amLODIPine 2.5 MG TAB PO SCH (08:08)
[2016-06-13] MEDS: LORATADINE 10 MG TAB PO SCH (08:08)
[2016-06-13 08:36] VITALS: BP 137/78; TEMP 97.7
[2016-06-13] MEDS: IPRATROPIUM-ALBUTEROL 3 ML NEB INHALATION SCH ×2 (08:51→13:22)
[2016-06-13] MEDS: BUDESONIDE 0.5 MG/2 ML NEBU INHALATION SCH (08:51)
[2016-06-13 08:54] VITALS: PULSE 70
[2016-06-13] MEDS: IBUPROFEN 800 MG TAB PO PRN (10:32)
[2016-06-13 11:17] LABS: Glucose,Whole Blood 132 mg/dL (75-99)
--- NOTE | 2016-06-13 11:39 | P.PN ---
Subjective This is a 51-year-old patient being evaluated and examined today on the sixth floor. This patient is well-known to our office. This patient came into the emergency room after being seen in the office and had failed outpatient therapy. The patient had a progressive productive cough and shortness of breath that had been going on for about 2 weeks without any significant improvement. First the patient went to the urgent care clinic where she did receive steroids and antibiotics after not improving she then went to our office and we advised her to go to the emergency room. The patient is known to have extensive asthma and does receive Xolair injections. Upon examination the patient's resting up in bed on room air she continues to have some shortness of breath with exertion, however this has decreased.. Patient is feeling significantly better and is ready for discharge. Objective - Vital Signs Vital signs: Vital Signs Temp 97.7 F 06/13/16 08:35 Pulse 70 06/13/16 09:06 Resp 20 06/13/16 08:35 BP 137/78 06/13/16 08:35 Pulse Ox 94 L 06/13/16 08:35 Intake & Output 06/12/16 06/13/16 06/13/16 18:59 06:59 18:59 Intake Total 2100 500 Balance 2100 500 Intake: Oral 2100 500 Other: Voiding Method Toilet Toilet # Voids 3 1 - Exam GENERAL EXAM: Alert, active, comfortable in no apparent distress. HEAD: Normocephalic. EYES: Normal reaction of pupils, equal size. NOSE: Clear with pink turbinates. THROAT: No erythema or exudates. NECK: No masses, no JVD. CHEST: No chest wall deformity. LUNGS: Equal air entry with no crackles, rhonchi or dullness. Expiratory wheeze , decreased CVS: S1 and S2 normal with no audible mumurs, regular rhythm. ABDOMEN: No hepatosplenomegaly, normal bowel sounds, no guarding or rigidity. EXTREMITIES: No edema noted, pedal pulses palpable. SKIN: No rashes CENTRAL NERVOUS SYSTEM: No focal deficits, tone is normal in all 4 extremities. - Labs CBC & Chem 7: 06/13/16 06:29 06/13/16 06:29 Labs: Abnormal Lab Results - Last 24 Hours (Table) 06/12/16 06/12/16 06/12/16 Range/Units 12:58 17:24 20:54 Lymphocytes # (1.0-4.8) k/uL Carbon Dioxide (22-30) mmol/L Glucose (74-99) mg/dL POC Glucose (mg/dL) 162 H 146 H 190 H (75-99) mg/dL Total Protein (6.3-8.2) g/dL Albumin (3.5-5.0) g/dL 06/13/16 06/13/16 06/13/16 Range/Units 06:29 06:29 06:45 Lymphocytes # 0.7 L (1.0-4.8) k/uL Carbon Dioxide 32 H (22-30) mmol/L Glucose 161 H (74-99) mg/dL POC Glucose (mg/dL) 160 H (75-99) mg/dL Total Protein 6.0 L (6.3-8.2) g/dL Albumin 3.4 L (3.5-5.0) g/dL 06/13/16 Range/Units 11:14 Lymphocytes # (1.0-4.8) k/uL Carbon Dioxide (22-30) mmol/L Glucose (74-99) mg/dL POC Glucose (mg/dL) 132 H (75-99) mg/dL Total Protein (6.3-8.2) g/dL Albumin (3.5-5.0) g/dL Microbiology - Last 24 Hours (Table) 06/10/16 16:40 Gram Stain - Final Sputum Sputum Culture - Final Assessment and Plan Plan: Assessment Acute tracheobronchitis Acute exacerbation of severe persistent asthma Obstructive sleep apnea Hypertension Hypokalemia Hyperglycemia related to steroids Hyperlipidemia Plan cleared for discharge. Patient will have Xolair injection and office. Medications have been reviewed and will be continued as ordered. Continue with nebulizer treatments and pulmonary hygiene. Continue with CPAP at night. Incentive spirometer initiated and encouraged. We will continue to monitor labs /results and adjust treatment as necessary. I performed an examination of the patient and discussed their management with the nurse practitioner. I have reviewed the nurse practitioner's note and agree with the documented findings and plan of care.
--- NOTE | 2016-06-13 12:23 | P.DS ---
Providers Date of admission: 06/09/16 15:07 Expected date of discharge: 06/13/16 Attending physician: Cedrick Marinelli Consults: Dr. Snyder Primary care physician: Ariana Ghosh [facility] Course: Discharge diagnosis 1. Acute persistent asthma exacerbation: Failed outpatient treatment. 2. Acute tracheobronchitis: Chest x-ray shows no evidence of pneumonia. Continue Levaquin 3 more days. Patient failed outpatient antibiotic treatment. Sputum culture normal respiratory coby 3. Accelerated hypertension present on admission. Continue to monitor blood pressures. Blood pressures have shown improvement with the addition of Norvasc 4. Mild hypokalemia:. Patient received potassium supplement. Potassium normal at 4.1 5. Hyperglycemia secondary to steroids. Patient was started on insulin sliding scale 6. Hyperlipidemia continue Lipitor 7. History of obstructive sleep apnea. Patient has her CPAP from home Hospital course This is a 51-year-old female presented with cough and shortness of breath. She had failed outpatient antibiotics and steroids. She started on IV Solu-Medrol and Levaquin for asthma exacerbation and bronchitis. Chest x-ray was negative for pneumonia. Patient was followed by pulmonary service. 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 She is scheduled to follow-up with pulmonary service and restart her Xolair injections. Patient's symptoms have improved. She's been cleared by pulmonary service for discharge. She'll continue to use 2 more days of Levaquin. She also will continue prednisone taper. During this admission her blood pressures were elevated Norvasc 2.5 mg daily was added. Blood pressures have shown improvement. Recommend continuing to monitor blood pressures in the outpatient setting. Patient is stable for discharge. Please refer to chart for any further details Patient Condition at Discharge: Stable Plan - Discharge Summary New Discharge Prescriptions: Levofloxacin [Levaquin] 500 mg PO Q24H #3 tab amLODIPine [Norvasc] 2.5 mg PO DAILY #30 tab guaiFENesin [Mucinex] 1,200 mg PO Q12HR #6 tablet.er predniSONE 10 mg PO DIRECTED #30 tab Discharge Medication List Albuterol Nebulized [Ventolin Nebulized] 2.5 mg INHALATION RT-TID PRN 05/28/15 [ History] Atorvastatin [Lipitor] 40 mg PO DAILY 05/28/15 [History] Cetirizine HCl [Zyrtec] 10 mg PO DAILY 05/28/15 [History] DULoxetine HCL [Cymbalta] 30 mg PO DAILY 05/28/15 [History] Ibuprofen [Motrin] 800 mg PO DAILY PRN 05/28/15 [History] Montelukast Sodium [Singulair] 10 mg PO DAILY 05/28/15 [History] Omalizumab [Xolair] 300 mg PO Q14D 05/28/15 [History] Pantoprazole Sodium [Protonix] 20 mg PO DAILY 05/28/15 [History] Levofloxacin [Levaquin] 500 mg PO Q24H #3 tab 06/13/16 [Rx] amLODIPine [Norvasc] 2.5 mg PO DAILY #30 tab 06/13/16 [Rx] guaiFENesin [Mucinex] 1,200 mg PO Q12HR #6 tablet.er 06/13/16 [Rx] predniSONE 10 mg PO DIRECTED #30 tab 06/13/16 [Rx] Follow up Appointment(s)/Referral(s): Gustavo Snyder MD [STAFF PHYSICIAN] - 1 Week Ariana Ghosh MD [Primary Care Provider] - 1 Week Activity/Diet/Wound Care/Special Instructions: Diet: cardiac Activity: as tolerated Discharge Disposition: HOME SELF-CARE
== END 2016-06-13 13:43 | disposition home or self-care (01) | DRG 202 ==
LOC: EC 12:45 → 6PED 15:07
PROVIDERS: ADMIT Internal Medicine; ATTEND Internal Medicine
DX: J20.9 Acute bronchitis, unspecified (principal); J45.51 Severe persistent asthma with (acute) exacerbation; I10 Essential (primary) hypertension; E78.5 Hyperlipidemia, unspecified; E87.6 Hypokalemia; F32.9 Major depressive disorder, single episode, unspecified; F41.9 Anxiety disorder, unspecified; G47.33 Obstructive sleep apnea (adult) (pediatric); T38.0X5A Adverse effect of glucocorticoids and synthetic analogues, initial encounter; R73.9 Hyperglycemia, unspecified; Z79.899 Other long term (current) drug therapy; Z88.0 Allergy status to penicillin
CPT/HCPCS: 36415; 71020; 80053; 81003; 83036; 83735; 83880; 85025; 87070; 87205; 87502; 94640; 96365; 96375; 99285

== ENCOUNTER → 2016-06-09 | Outpatient (CLI) | payer BC ==
--- NOTE | 2016-06-09 10:27 | MM ---
Reason for exam: clinical finding. Last mammogram was performed 1 year and 4 months ago. History: Patient is postmenopausal and has history of other cancer at age 27. Benign MG stereo VAD BX RT of the right breast, December 09, 2013. Benign stereotactic core biopsy of the right breast, June 01, 2001. Took hormonal contraceptives for 10 years beginning at age 17. Physical Findings: Nurse Summary: 0.5cm nodule in the right breast at 12:30and 2:30 (nurse dw). MG 3D Diag Mammo W/Cad GILMA Bilateral CC and MLO view(s) were taken. Prior study comparison: February 06, 2015, bilateral MG 3d screening mammo w/cad. November 19, 2013, bilateral MG diagnostic mammo w CAD GILMA. There are scattered fibroglandular densities. Finding: There are typically benign diffuse/scattered, spherical calcifications in both breasts. Previous mammotome biopsy in the right breast. There is a chronic nodularity in the left breast. No significant changes in finding since November 19, 2013 and February 06, 2015. These results were verbally communicated with the patient and result sheet given to the patient on 06/09/16. ASSESSMENT: Benign, BI-RAD 2 RECOMMENDATION: Routine screening mammogram of both breasts in 1 year.
--- NOTE | 2016-06-09 10:29 | USB ---
Reason for exam: clinical finding. History: Patient is postmenopausal and has history of other cancer at age 27. Benign MG stereo VAD BX RT of the right breast, December 09, 2013. Benign stereotactic core biopsy of the right breast, June 01, 2001. Took hormonal contraceptives for 10 years beginning at age 17. US Breast RT Right breast ultrasound includes all four quadrants, the retroareolar region and axilla. Finding demonstrates a 8 x 5 x 7mm oval, solid calcification at 1 o'clock palpable and a 8 x 6 x 14mm oval, solid, calcification at 2 o'clock palpable. These results were verbally communicated with the patient and result sheet given to the patient on 06/09/16. ASSESSMENT: Benign, BI-RAD 2 RECOMMENDATION: Routine screening mammogram of both breasts in 1 year. Manage patient on a clinical basis.
== END | disposition home or self-care (01) ==
LOC: RADMAMWWP 09:07
PROVIDERS: ATTEND Family Medicine
DX: N63 Unspecified lump in breast (principal)
CPT/HCPCS: 76641; G0204; G0279

== ENCOUNTER → 2016-06-28 | Outpatient (CLI) | payer BC ==
--- NOTE | 2016-06-28 22:52 | XR ---
EXAMINATION TYPE: XR chest 2V DATE OF EXAM: 06/28/2016 5:19 PM COMPARISON: 06/09/2016 HISTORY: 51-year-old female with cough and shortness of breath TECHNIQUE: Frontal and lateral views FINDINGS: Heart remains mildly enlarged. Diffuse interstitial prominence and some peribronchial cuffing is note d. Changes appear chronic. No consolidation or pleural effusion. IMPRESSION: 1. Mild cardiomegaly. 2. Chronic changes, possible chronic bronchitis/asthma. Otherwise, no acute process.
== END ==
LOC: RADXRMAIN 17:01
PROVIDERS: ATTEND Internal Medicine Sleep Medicine
DX: I51.7 Cardiomegaly (principal)
CPT/HCPCS: 71020

== ENCOUNTER → 2016-07-20 | Outpatient (CLI) | payer BC ==
[2016-07-20 08:30] LABS: ALT 29 U/L (9-52); AST 24 U/L (14-36); Alkaline Phosphatase 110 U/L (38-126); Anion Gap 11 mmol/L; Blood Urea Nitrogen 12 mg/dL (7-17); Calcium 9.5 mg/dL (8.4-10.2); Carbon Dioxide 28 mmol/L (22-30); Chloride 105 mmol/L (98-107); Cholesterol 199 mg/dL (<200); Glucose 113 mg/dL (74-99); HDL Cholesterol 69 mg/dL (40-60); Non-African American GFR(MDRD) >60 (>60 ml/min/1.73 sqM); Potassium 4.5 mmol/L (3.5-5.1); Sodium 144 mmol/L (137-145); Total Bilirubin 0.9 mg/dL (0.2-1.3); Total Protein 6.9 g/dL (6.3-8.2); Triglycerides 119 mg/dL (<150)
== END ==
LOC: LABWHC1 07:36
PROVIDERS: ATTEND Internal Medicine Interventional Cardiology
DX: E78.2 Mixed hyperlipidemia (principal)
CPT/HCPCS: 36415; 80053; 80061

== ENCOUNTER → 2017-03-25 | Outpatient (CLI) | payer BC ==
[2017-03-25 09:36] LABS: ALT 37 U/L (9-52); AST 32 U/L (14-36); Cholesterol 181 mg/dL (<200); Creatine Kinase 72 U/L (30-135); HDL Cholesterol 61 mg/dL (40-60); LDL Cholesterol,Calculated 100 mg/dL (0-99); Triglycerides 100 mg/dL (<150)
== END | disposition home or self-care (01) ==
LOC: LABWHC1 08:47
PROVIDERS: ATTEND Internal Medicine Interventional Cardiology
DX: E78.2 Mixed hyperlipidemia (principal)
CPT/HCPCS: 36415; 80061; 82550; 84450; 84460

== ENCOUNTER → 2017-04-14 | Outpatient (CLI) | payer BC ==
[2017-04-14 15:33] LABS: Basophils % (A) 1 %; Eosinophils # (A) 0.1 k/uL (0-0.7); Eosinophils % (A) 2 %; HCT 42.5 % (34.0-46.0); HGB 13.4 gm/dL (11.4-16.0); Lymphocytes # (A) 1.8 k/uL (1.0-4.8); Lymphocytes % (A) 29 %; MCH 28.5 pg (25.0-35.0); MCHC 31.6 g/dL (31.0-37.0); MCV 90.3 fL (80.0-100.0); Mean Platelet Volume 6.7; Monocytes # (A) 0.4 k/uL (0-1.0); Monocytes % (A) 6 %; Neutrophils # (A) 3.8 k/uL (1.3-7.7); Neutrophils % (A) 61 %; Platelet Count 297 k/uL (150-450); RBC 4.71 m/uL (3.80-5.40); RDW 13.5 % (11.5-15.5); WBC 6.2 k/uL (3.8-10.6)
== END | disposition home or self-care (01) ==
LOC: LABWHC1 14:50
PROVIDERS: ATTEND Internal Medicine Sleep Medicine
DX: B44.89 Other forms of aspergillosis (principal)
CPT/HCPCS: 36415; 82785; 85025

== ENCOUNTER → 2017-07-06 | Outpatient (CLI) | payer BC ==
--- NOTE | 2017-07-06 11:32 | BD ---
EXAMINATION TYPE: Axial Bone Density DATE OF EXAM: 07/06/2017 COMPARISON: NONE CLINICAL HISTORY: Postmenopausal female Height: 67 Weight: 328.4 FRAX RISK QUESTIONS: Alcohol (3 or more units per day): no Family History (Parent hip fracture): yes mother Glucocorticoids (More than 3mos): no (Ex: prednisone, prednisolone, methylprednisolone, dexamethasone, and hydrocortisone). History of Fracture in Adulthood: no Secondary Osteoporosis: 1. Type 1 Diabetes: no 2. Hyperthyroidism: no 3. Menopause before 45: no 4. Malnutrition: no 5. Chronic liver disease: no Rheumatoid Arthritis: no Current Tobacco Use: no RISK FACTORS HISTORY OF: Family History of Osteoporosis: yes Active: sometimes Diet low in dairy products/other sources of calcium: yes Postmenopausal woman: hysterectomy in 2013 Lost more than 2 inches in height since high school: no Poor Health: yes MEDICATIONS: norvasc, lipitor, motrin 800, protonix, Cymbalta, asthma shot Additional History: EXAM MEASUREMENTS: Bone mineral densitometry was performed using the [employer] System. Bone mineral density as measured about the Lumbar spine is: ----- L1-L4(G/cm2): 1.075 T Score Values are as follows: ----- L2: -0.5 ----- L3: -0.9 ----- L4: -1.5 ----- L1-L4: -0.9 Bone mineral density baseline Bone mineral density about the R hip (g/cm2): 1.110 Bone mineral density about the L hip (g/cm2): 1.203 T Score values are as follows: -----R Neck: 0.5 -----L Neck: 1.2 -----R Total: 0.4 -----L Total: 1.2 Bone mineral density has: baseline IMPRESSION: Normal (Values between +1 and -1 indicate normal bone mass). Consider repeating this study in 5 year s or sooner if there is some new clinical indication. NOTE: T-SCORE=SD OF THE YOUNG ADULT MEAN.
--- NOTE | 2017-07-07 13:20 | MM ---
Reason for exam: screening (asymptomatic). Last mammogram was performed 1 year and 1 month ago. History: Patient is postmenopausal and has history of other cancer at age 27. Benign MG stereo VAD BX RT of the right breast, December 09, 2013. Benign stereotactic core biopsy of the right breast, June 01, 2001. Took hormonal contraceptives for 10 years beginning at age 17. Physical Findings: A clinical breast exam by your physician is recommended on an annual basis and results should be correlated with mammographic findings. MG 3D Screening Mammo W/Cad Bilateral CC and MLO view(s) were taken. Prior study comparison: June 09, 2016, bilateral MG 3d diag mammo w/cad [facility]. February 06, 2015, bilateral MG 3d screening mammo w/cad. There are scattered fibroglandular densities. Finding: There are typically benign diffuse/scattered calcifications in both breasts. No suspicious abnormality. Right biopsy marker noted. No significant changes in finding since June 09, 2016 and February 06, 2015. ASSESSMENT: Benign, BI-RAD 2 RECOMMENDATION: Routine screening mammogram of both breasts in 1 year.
== END | disposition home or self-care (01) ==
LOC: RADMAMWWP 08:37
PROVIDERS: ATTEND Family Medicine
DX: Z12.31 Encounter for screening mammogram for malignant neoplasm of breast (principal); Z78.0 Asymptomatic menopausal state
CPT/HCPCS: 77063; 77067; 77080

== ENCOUNTER → 2017-10-04 | Outpatient (CLI) | payer BC ==
[2017-10-04 11:07] LABS: ALT 52 U/L (9-52); AST 47 U/L (14-36); Cholesterol 170 mg/dL (<200); Creatine Kinase 67 U/L (30-135); HDL Cholesterol 55 mg/dL (40-60); LDL Cholesterol,Calculated 84 mg/dL (0-99); Triglycerides 155 mg/dL (<150)
== END | disposition home or self-care (01) ==
LOC: LABWHC1 09:39
PROVIDERS: ATTEND Internal Medicine Interventional Cardiology
DX: E78.2 Mixed hyperlipidemia (principal)
CPT/HCPCS: 36415; 80061; 82550; 84450; 84460

== ENCOUNTER → 2018-03-06 | Outpatient (CLI) | payer BC ==
[2018-03-06 09:13] LABS: HCT 39.8 % (34.0-46.0); HGB 13.2 gm/dL (11.4-16.0); MCH 29.5 pg (25.0-35.0); MCHC 33.2 g/dL (31.0-37.0); MCV 88.7 fL (80.0-100.0); Mean Platelet Volume 6.9; Platelet Count 216 k/uL (150-450); RBC 4.49 m/uL (3.80-5.40); RDW 13.8 % (11.5-15.5)
[2018-03-06 16:31] LABS: Thyroid Peroxidase Antibodies 273.9 U/mL (0.0-60.0)
[2018-03-06 17:10] LABS: Albumin 4.5 g/dL (3.80-4.90); Albumin/Globulin Ratio 2.5 (1.20-2.10); Anion Gap 10.7 mmol/L (4.00-12.00); Calcium 9.4 mg/dL (8.7-10.3); Carbon Dioxide 27.3 mmol/L (21.6-31.8); Globulin 1.8 g/dL (1.6-3.3); Potassium 4.7 mmol/L (3.5-5.5); Total Bilirubin 0.8 mg/dL (0.3-1.2); Total Protein 6.3 g/dL (6.2-8.2)
[2018-03-06 17:17] LABS: T4, Free (Free Thyroxine) 1.1 ng/dL (0.80-1.80)
[2018-03-06 18:21] LABS: Hemoglobin A1C 5.8 % (4.0-6.0)
[2018-03-06 19:26] LABS: ACTH 14.8 pg/mL (0.00-45.99)
== END ==
LOC: LABWHC1 08:24
PROVIDERS: ATTEND Internal Medicine Endocrinology, Diabetes & Metabolism
DX: R53.83 Other fatigue (principal); R73.03 Prediabetes
CPT/HCPCS: 36415; 80053; 82024; 82533; 82607; 83036; 84146; 84439; 84443; 85027; 86376

== ENCOUNTER → 2018-05-03 | Outpatient (CLI) | payer BC ==
[2018-05-03 08:07] LABS: HCT 41.4 % (34.0-46.0); HGB 13.6 gm/dL (11.4-16.0); MCH 29.5 pg (25.0-35.0); MCHC 32.9 g/dL (31.0-37.0); MCV 89.7 fL (80.0-100.0); Mean Platelet Volume 6.4; Platelet Count 218 k/uL (150-450); RBC 4.62 m/uL (3.80-5.40); RDW 13.8 % (11.5-15.5); WBC 3.9 k/uL (3.8-10.6)
[2018-05-03 15:15] LABS: Thyroid Peroxidase Antibodies 182.9 U/mL (0.0-60.0)
[2018-05-03 16:17] LABS: ACTH 30.5 pg/mL (0.00-45.99); Albumin 4.4 g/dL (3.80-4.90); Albumin/Globulin Ratio 2.1 (1.60-3.17); Anion Gap 8.4 mmol/L (4.00-12.00); Calcium 9.5 mg/dL (8.7-10.3); Carbon Dioxide 28.6 mmol/L (21.6-31.8); Globulin 2.1 g/dL (1.6-3.3); Potassium 4.4 mmol/L (3.5-5.5); Total Bilirubin 0.9 mg/dL (0.3-1.2); Total Protein 6.5 g/dL (6.2-8.2)
[2018-05-03 16:20] LABS: Hemoglobin A1C 5.9 % (4.0-6.0)
== END | disposition home or self-care (01) ==
LOC: LABWHC1 07:33
PROVIDERS: ATTEND Internal Medicine Endocrinology, Diabetes & Metabolism
DX: R53.83 Other fatigue (principal); R73.03 Prediabetes
CPT/HCPCS: 36415; 80053; 82024; 82533; 82607; 83036; 84146; 84439; 84443; 84481; 85027; 86376

== ENCOUNTER → 2018-06-29 | Outpatient (CLI) | payer BC ==
[2018-06-29 16:28] LABS: Albumin 4.4 g/dL (3.80-4.90); Albumin/Globulin Ratio 2.44 (1.60-3.17); Anion Gap 7.6 mmol/L (4.00-12.00); Calcium 9.2 mg/dL (8.7-10.3); Carbon Dioxide 30.4 mmol/L (21.6-31.8); Globulin 1.8 g/dL (1.6-3.3); LDL Cholesterol,Calculated 95.2 mg/dL (0.0-131.0); Potassium 4.7 mmol/L (3.5-5.5); Total Bilirubin 0.8 mg/dL (0.2-1.2); Total Protein 6.2 g/dL (6.2-8.2); VLDL Calculation 21.8 mg/dL (5.00-40.00)
== END ==
LOC: LABWHC1 07:47
PROVIDERS: ATTEND Internal Medicine Interventional Cardiology
DX: E03.8 Other specified hypothyroidism (principal); E78.2 Mixed hyperlipidemia
CPT/HCPCS: 36415; 80053; 80061; 84443

== ENCOUNTER → 2018-08-03 | Outpatient (CLI) | payer BC ==
--- NOTE | 2018-08-06 13:14 | MM ---
Reason for exam: screening (asymptomatic). Last mammogram was performed 1 year and 1 month ago. History: Patient is postmenopausal and has history of other cancer at age 27. Benign MG stereo VAD BX RT of the right breast, December 09, 2013. Benign stereotactic core biopsy of the right breast, June 01, 2001. Took hormonal contraceptives for 10 years beginning at age 17. Physical Findings: A clinical breast exam by your physician is recommended on an annual basis and results should be correlated with mammographic findings. MG 3D Screening Mammo W/Cad Bilateral CC and MLO view(s) were taken. Prior study comparison: July 06, 2017, bilateral MG 3d screening mammo w/cad. June 09, 2016, bilateral MG 3d diag mammo w/cad [facility]. There are scattered fibroglandular densities. Previous mammotome biopsy in the right breast. There is chronic nodularity in the left breast. Multiple bilateral benign oil cyst calcifications. ASSESSMENT: Benign, BI-RAD 2 RECOMMENDATION: Routine screening mammogram of both breasts in 1 year.
== END | disposition home or self-care (01) ==
LOC: RADMAMWWP 15:10
PROVIDERS: ATTEND Family Medicine
DX: Z12.31 Encounter for screening mammogram for malignant neoplasm of breast (principal)
CPT/HCPCS: 77063; 77067

== ENCOUNTER → 2018-08-07 | Outpatient (CLI) | payer BC | END | disposition home or self-care (01) | LOC: LABWHC1 14:34 | PROVIDERS: ATTEND Internal Medicine Endocrinology, Diabetes & Metabolism | DX: E03.8 Other specified hypothyroidism (principal) | CPT/HCPCS: 36415; 84443 ==

== ENCOUNTER → 2018-11-08 | Outpatient (CLI) | payer BC, MEDICARE ==
[2018-11-08 16:38] LABS: Chol/HDL Ratio 2.86; LDL Cholesterol,Calculated 97.2 mg/dL (0.0-131.0); VLDL Calculation 21.8 mg/dL (5.00-40.00)
[2018-11-08 16:45] LABS: T4, Free (Free Thyroxine) 1.2 ng/dL (0.80-1.80)
== END | disposition home or self-care (01) ==
LOC: LABWHC1 08:18
PROVIDERS: ATTEND Internal Medicine Endocrinology, Diabetes & Metabolism
DX: E03.8 Other specified hypothyroidism (principal); E78.2 Mixed hyperlipidemia
CPT/HCPCS: 36415; 80061; 84439; 84443; 84450; 84460

== ENCOUNTER → 2019-04-11 | Outpatient (CLI) | payer MEDICARE ==
[2019-04-11 15:51] LABS: African American GFR (CKD) 115.5 (60.0-200.0); Albumin 4.5 g/dL (3.80-4.90); Albumin/Globulin Ratio 2.37 (1.60-3.17); Anion Gap 7.6 mmol/L (4.00-12.00); BUN/Creat Ratio 21.43 Ratio (12.00-20.00); Calcium 9.4 mg/dL (8.7-10.3); Carbon Dioxide 30.4 mmol/L (21.6-31.8); Chol/HDL Ratio 2.81; Globulin 1.9 g/dL (1.6-3.3); LDL Cholesterol,Calculated 90.8 mg/dL (0.0-131.0); Non-African American GFR(CKD) 99.6 (60.0-200.0); Potassium 4.8 mmol/L (3.5-5.5); Total Bilirubin 0.7 mg/dL (0.3-1.2); Total Protein 6.4 g/dL (6.2-8.2); VLDL Calculation 21.2 mg/dL (5.00-40.00)
== END | disposition home or self-care (01) ==
LOC: LABWHC1 09:06
PROVIDERS: ATTEND Nurse Practitioner Adult Health
DX: E78.2 Mixed hyperlipidemia (principal); I10 Essential (primary) hypertension
CPT/HCPCS: 36415; 80053; 80061

== ENCOUNTER → 2019-05-08 | Outpatient (CLI) | payer MEDICARE ==
[2019-05-08 18:11] LABS: Hemoglobin A1C 5.6 % (4.0-6.0)
== END | disposition home or self-care (01) ==
LOC: LABWHC1 09:04
PROVIDERS: ATTEND Internal Medicine Endocrinology, Diabetes & Metabolism
DX: E03.8 Other specified hypothyroidism (principal); R73.03 Prediabetes
CPT/HCPCS: 36415; 83036; 84443

== ENCOUNTER → 2019-08-09 | Outpatient (CLI) | payer MEDICARE ==
[2019-08-09 08:09] LABS: African American GFR (CKD) >90 (>60 ml/min/1.73 sqM); Blood Urea Nitrogen 10 mg/dL (7-17); Non-African American GFR(CKD) >90 (>60 ml/min/1.73 sqM)
--- NOTE | 2019-08-09 09:41 | CT ---
EXAMINATION TYPE: CT abdomen pelvis w con DATE OF EXAM: 08/09/2019 COMPARISON: 04/21/2015 HISTORY: gross hematuria, UTI CT DLP: 2230.6 mGycm Automated exposure control for dose reduction was used. CONTRAST: CT scan of the abdomen pelvis is performed with IV Contrast, patient injected with 100 mL of Isovue 3 00. FINDINGS- LUNG BASES- No significant abnormality is appreciated. LIVER/GB- No gross abnormality is appreciated. PANCREAS- No gross abnormality is seen. SPLEEN- No gross abnormality is seen. ADRENALS- No gross abnormality is seen. KIDNEYS/BLADDER- no hydronephrosis nephrolithiasis or renal mass. BOWEL-diverticulosis of the bowel. Bowel gas pattern nonspecific. Small hiatal hernia. LYMPH NODES- No greater than 1cm abdominal or pelvic lymph nodes areappreciated. OSSEOUS STRUCTURES-hypertrophic and degenerative change of the spine.. OTHER- aorta of normal caliber. No free fluid. IMPRESSION- 1. No evidence of renal mass. Bladder somewhat limited by artifact but no definite abnormality. No hy dronephrosis or nephrolithiasis. 2. Diverticulosis.
== END | disposition home or self-care (01) ==
LOC: RADCTMAIN 07:26
PROVIDERS: ATTEND Urology
DX: K57.90 Diverticulosis of intestine, part unspecified, without perforation or abscess without bleeding (principal); R31.0 Gross hematuria; Z88.0 Allergy status to penicillin
CPT/HCPCS: 82565; 84520; 74177; 36415; Q9967

== ENCOUNTER → 2019-11-01 | Outpatient (CLI) | payer MEDICARE ==
[2019-11-01 17:28] LABS: African American GFR (CKD) 120.6 (60.0-200.0); Albumin 4.3 g/dL (3.80-4.90); Albumin/Globulin Ratio 1.95 (1.60-3.17); Anion Gap 9.1 mmol/L (4.00-12.00); BUN/Creat Ratio 26.67 Ratio (12.00-20.00); Calcium 9.5 mg/dL (8.7-10.3); Carbon Dioxide 27.9 mmol/L (21.6-31.8); Chol/HDL Ratio 2.56; Globulin 2.2 g/dL (1.6-3.3); Non-African American GFR(CKD) 104.1 (60.0-200.0); Potassium 4.9 mmol/L (3.5-5.5); Total Bilirubin 0.9 mg/dL (0.3-1.2); Total Protein 6.5 g/dL (6.2-8.2)
[2019-11-01 19:27] LABS: Hemoglobin A1C 5.7 % (4.0-6.0)
== END | disposition home or self-care (01) ==
LOC: LABWHC1 10:14
PROVIDERS: ATTEND Internal Medicine Interventional Cardiology
DX: E03.8 Other specified hypothyroidism (principal); R73.03 Prediabetes; E78.2 Mixed hyperlipidemia
CPT/HCPCS: 36415; 80053; 80061; 83036; 84443

== ENCOUNTER → 2019-12-02 | Outpatient (CLI) | payer MEDICARE ==
--- NOTE | 2019-12-03 11:12 | MM ---
Reason for exam: screening (asymptomatic). Last mammogram was performed 1 year and 4 months ago. History: Patient is postmenopausal and has history of other cancer at age 27. Benign MG stereo VAD BX RT of the right breast, December 09, 2013. Benign stereotactic core biopsy of the right breast, June 01, 2001. Took hormonal contraceptives for 10 years beginning at age 17. Physical Findings: A clinical breast exam by your physician is recommended on an annual basis and results should be correlated with mammographic findings. MG 3D Screening Mammo W/Cad Bilateral CC, MLO, and CV view(s) were taken. Prior study comparison: August 03, 2018, bilateral MG 3d screening mammo w/cad. July 06, 2017, bilateral MG 3d screening mammo w/cad. There are scattered fibroglandular densities. Finding #1: There is a 7-8 mm circumscribed round mass located 7 cm from the nipple in the lower outer quadrant, anterior position of the right breast on CC 8/ and MLO 14/85. Finding #2: There are multiple typically benign dystrophic, round calcifications in both breasts. Previous mammotome biopsy in the right breast. There is a chronic nodularity in the left breast. New finding since August 03, 2018 and July 06, 2017. ASSESSMENT: Incomplete: need additional imaging evaluation, BI-RAD 0 RECOMMENDATION: Ultrasound of the right breast. [facility] will attempt to contact patient to return for ultrasound.
== END | disposition home or self-care (01) ==
LOC: RADMAMWWP 12:47
PROVIDERS: ATTEND Family Medicine
DX: Z12.31 Encounter for screening mammogram for malignant neoplasm of breast (principal)
CPT/HCPCS: 77063; 77067

== ENCOUNTER → 2019-12-17 | Outpatient (CLI) | payer MEDICARE ==
--- NOTE | 2019-12-17 11:26 | USB ---
Reason for exam: additional evaluation requested from abnormal screening. History: Patient is postmenopausal and has history of other cancer at age 27. Benign MG stereo VAD BX RT of the right breast, December 09, 2013. Benign stereotactic core biopsy of the right breast, June 01, 2001. Took hormonal contraceptives for 10 years beginning at age 17. Physical Findings: Nurse did not find any significant physical abnormalities on exam. US Breast Workup Limited RT Right limited breast ultrasound including focal area of concern, retroareolar and axilla demonstrates a 7 x 5 x 7mm oval, echogenic, possible non-calcified oil cyst at 6 o'clock, mammographic correlate, 6 month follow up and a 4 x 3 x 4mm oval, cystic, benign lesion at 8 o'clock. Scanned 2-9 o'clock. Large calcification at BB. Multiple cysts at 8 o'clock. Multiple calcified oil cysts including at the 2 o'clock position nurse palpated area. These results were verbally communicated with the patient and result sheet given to the patient on 12/17/19. ASSESSMENT: Probably benign, BI-RAD 3 RECOMMENDATION: Follow-up diagnostic mammogram of the right breast in 6 months.
== END | disposition home or self-care (01) ==
LOC: RADUSWWP 09:42
PROVIDERS: ATTEND Family Medicine
DX: R92.8 Other abnormal and inconclusive findings on diagnostic imaging of breast (principal)

== ENCOUNTER → 2020-05-05 | Outpatient (CLI) | payer MEDICARE ==
[2020-05-05 15:34] LABS: African American GFR (CKD) 97.6 (60.0-200.0); Albumin 4.5 g/dL (3.80-4.90); Albumin/Globulin Ratio 2.14 (1.60-3.17); Anion Gap 7.5 mmol/L (4.00-12.00); Calcium 9.6 mg/dL (8.7-10.3); Carbon Dioxide 30.5 mmol/L (21.6-31.8); Chol/HDL Ratio 3.17; Globulin 2.1 g/dL (1.6-3.3); LDL Cholesterol,Calculated 99.6 mg/dL (0.0-131.0); Non-African American GFR(CKD) 84.2 (60.0-200.0); Potassium 4.8 mmol/L (3.5-5.5); Total Bilirubin 0.8 mg/dL (0.3-1.2); Total Protein 6.6 g/dL (6.2-8.2); VLDL Calculation 30.4 mg/dL (5.00-40.00)
== END | disposition home or self-care (01) ==
LOC: LABWHC1 09:43
PROVIDERS: ATTEND Internal Medicine Endocrinology, Diabetes & Metabolism
DX: E78.2 Mixed hyperlipidemia (principal); E03.8 Other specified hypothyroidism; I10 Essential (primary) hypertension
CPT/HCPCS: 36415; 80053; 80061; 84443

== ENCOUNTER → 2020-11-18 | Outpatient (CLI) | payer MEDICARE ==
[2020-11-18 23:07] LABS: African American GFR (CKD) 96.9 (60.0-200.0); Albumin 4.8 g/dL (3.80-4.90); Anion Gap 10.7 mmol/L (4.00-12.00); Carbon Dioxide 26.3 mmol/L (21.6-31.8); Chol/HDL Ratio 3.57; Globulin 2.4 g/dL (1.6-3.3); LDL Cholesterol,Calculated 127.4 mg/dL (0.0-131.0); Non-African American GFR(CKD) 83.6 (60.0-200.0); Potassium 5.3 mmol/L (3.5-5.5); Total Bilirubin 0.7 mg/dL (0.3-1.2); Total Protein 7.2 g/dL (6.2-8.2); VLDL Calculation 34.6 mg/dL (5.00-40.00)
[2020-11-19 00:21] LABS: Hemoglobin A1C 5.9 % (4.0-6.0)
== END | disposition home or self-care (01) ==
LOC: LABWHC1 09:10
PROVIDERS: ATTEND Internal Medicine Endocrinology, Diabetes & Metabolism
DX: I10 Essential (primary) hypertension (principal); E78.2 Mixed hyperlipidemia; E03.8 Other specified hypothyroidism; R73.03 Prediabetes
CPT/HCPCS: 36415; 80053; 80061; 83036; 84443

== ENCOUNTER → 2021-01-08 | Outpatient (CLI) | payer MEDICARE ==
--- NOTE | 2021-01-08 14:12 | MM ---
Reason for exam: additional evaluation requested from prior study. Last mammogram was performed 1 year and 1 month ago. History: Patient is postmenopausal and has history of other cancer at age 27. Benign MG stereo VAD BX RT of the right breast, December 09, 2013. Benign stereotactic core biopsy of the right breast, June 01, 2001. Took hormonal contraceptives for 10 years beginning at age 17. Physical Findings: Nurse did not find any significant physical abnormalities on exam. MG 3D Diag Mammo W/Cad GILMA Bilateral CC and MLO view(s) were taken. Prior study comparison: December 02, 2019, bilateral MG 3d screening mammo w/cad. August 03, 2018, bilateral MG 3d screening mammo w/cad. The breast tissue is almost entirely fat. Bilateral calcifications are similar. These results were verbally communicated with the patient and result sheet given to the patient on 01/08/21. ASSESSMENT: Benign, BI-RAD 2 RECOMMENDATION: Routine screening mammogram of both breasts in 1 year.
== END | disposition home or self-care (01) ==
LOC: RADMAMWWP 12:55
PROVIDERS: ATTEND Family Medicine
DX: R92.1 Mammographic calcification found on diagnostic imaging of breast (principal); Z78.0 Asymptomatic menopausal state
CPT/HCPCS: 77066; G0279; 77062

== ENCOUNTER → 2021-06-22 | Outpatient (CLI) | payer MEDICARE ==
[2021-06-22 17:23] LABS: ALT 44 U/L (8-44); AST 41 U/L (13-35)
[2021-06-22 17:34] LABS: Chol/HDL Ratio 3.63 Ratio; LDL Cholesterol,Calculated 132.6 mg/dL (0.0-131.0)
== END | disposition home or self-care (01) ==
LOC: LABWHC1 08:19
PROVIDERS: ATTEND Nurse Practitioner Adult Health
DX: E78.2 Mixed hyperlipidemia (principal)
CPT/HCPCS: 36415; 80061; 84450; 84460

== ENCOUNTER → 2021-11-26 | Outpatient (CLI) | payer MEDICARE, OTHER ==
[2021-11-26 20:44] LABS: ALT 64 U/L (8-44); AST 65 U/L (13-35); Albumin 4.4 g/dL (3.8-4.9); Albumin/Globulin Ratio 1.83 (1.60-3.17); Alkaline Phosphatase 100 U/L (41-126); BUN/Creat Ratio 16.86 Ratio (12.00-20.00); Blood Urea Nitrogen 11.8 mg/dL (9.0-27.0); Calcium 9.4 mg/dL (8.7-10.3); Carbon Dioxide 26.2 mmol/L (20.0-27.5); Chloride 103 mmol/L (96-109); Chol/HDL Ratio 3.07 Ratio; Globulin 2.4 g/dL (1.6-3.3); Glucose 114 mg/dL (70-110); LDL Cholesterol,Calculated 111.8 mg/dL (0.0-131.0); Non-African American GFR(CKD) 97.5 (60.0-200.0); Potassium 4.5 mmol/L (3.5-5.5); Sodium 140 mmol/L (135-145); Total Protein 6.8 g/dL (6.2-8.2)
[2021-11-27 00:40] LABS: Microalbumin Creatinine Ratio <30 mg/g Creat (0-30)
== END | disposition home or self-care (01) ==
LOC: LABWHC1 11:26
PROVIDERS: ATTEND Internal Medicine Endocrinology, Diabetes & Metabolism
DX: E11.9 Type 2 diabetes mellitus without complications (principal)
CPT/HCPCS: 36415; 80053; 80061; 82043; 82570; 83036; 84443

== ENCOUNTER → 2022-02-09 | Outpatient (CLI) | payer MEDICARE ==
--- NOTE | 2022-02-10 08:41 | MM ---
Reason for Exam: Screening (asymptomatic). Last mammogram was performed 1 year(s) and 1 month(s) ago. Patient History: Menarche at age 13. First Full-Term at age 23. Left ovary removed at age 50. Right ovary removed at age 50. Hysterectomy at age 43. Postmenopausal. Other cancer, age 27. Hormonal Contraceptives for 10 years from age 17 until age 37. 12/09/2013, Benign Core Biopsy on the right side. 06/01/2001, Benign Stereotactic Core Biopsy on the right side. Risk Values: Leah 5 year model risk: 1.6%. NCI Lifetime model risk: 10.9%. Prior Study Comparison: 08/03/2018 Bilateral Screening Mammogram, [facility]. 12/02/2019 Bilateral Screening Mammogram, [facility]. 01/08/2021 Bilateral Diagnostic Mammogram, [facility]. Tissue Density: The breast tissue is heterogeneously dense. This may lower the sensitivity of mammography. Findings: Analyzed By CAD. Scattered benign-appearing calcifications. There is no suspicious group of microcalcifications or new suspicious mass in either breast. Overall Assessment: Benign, BI-RAD 2 Management: Screening Mammogram of both breasts in 1 year. A clinical breast exam by your physician is recommended on an annual basis and results should be correlated with mammographic findings. [facility] will attempt to contact patient to return for supplemental views and ultrasound if indicated. Electronically signed and approved by: Osman Ortiz DO
== END | disposition home or self-care (01) ==
LOC: RADMAMWWP 08:09
PROVIDERS: ATTEND Family Medicine
DX: Z12.31 Encounter for screening mammogram for malignant neoplasm of breast (principal); Z78.0 Asymptomatic menopausal state; Z90.721 Acquired absence of ovaries, unilateral
CPT/HCPCS: 77063; 77067

== ENCOUNTER → 2023-09-29 | Outpatient (CLI) | payer MEDICARE ==
[2023-09-29 17:06] LABS: ALT 26 U/L (8-44); AST 31 U/L (13-35); Albumin 4.6 g/dL (3.8-4.9); Albumin/Globulin Ratio 1.84 Ratio (1.60-3.17); Alkaline Phosphatase 113 U/L (41-126); BUN/Creat Ratio 14.43 Ratio (12.00-20.00); Blood Urea Nitrogen 10.1 mg/dL (9.0-27.0); Calcium 9.6 mg/dL (8.7-10.3); Carbon Dioxide 26.5 mmol/L (21.6-31.8); Chloride 104 mmol/L (96-109); Globulin 2.5 g/dL (1.6-3.3); Glucose 118 mg/dL (70-110); LDL Cholesterol,Calculated 159.8 mg/dL (0.0-131.0); Potassium 4.3 mmol/L (3.5-5.5); Sodium 143 mmol/L (135-145); Total Bilirubin 0.6 mg/dL (0.3-1.2); Total Protein 7.1 g/dL (6.2-8.2)
== END | disposition home or self-care (01) ==
LOC: LABWHC1 09:57
PROVIDERS: ATTEND Internal Medicine Interventional Cardiology
DX: I10 Essential (primary) hypertension (principal); E78.2 Mixed hyperlipidemia
CPT/HCPCS: 36415; 80053; 80061

== ENCOUNTER → 2024-02-29 | Outpatient (CLI) | payer MEDICARE ==
--- NOTE | 2024-02-29 13:47 | US ---
EXAMINATION TYPE: US thyroid st tissue head/neck DATE OF EXAM: 02/29/2024 COMPARISON: NONE CLINICAL INDICATION: Female, 58 years old with history of E04.9 NONTOXIC GOITER, UNSPECIFIED; TECHNIQUE: Grayscale and color Doppler imaging of the thyroid gland. FINDINGS: GLAND SIZE: Right Lobe: 4.6 x 1.8 x 1.6 cm Overall Parenchyma: heterogeneous Left Lobe: 4.0 x 1.6 x 1.4 cm Overall Parenchyma: heterogeneous Isthmus Thickness: 0.2 cm NODULES RIGHT: # of nodules measured on right: 0 LEFT: # of nodules measured on left: 0 ISTHMUS: # of nodules measured in the isthmus: 0 Bilateral neck scanned, no evidence of lymphadenopathy. IMPRESSION: Diffusely heterogenous thyroid gland without discrete nodule. [facility], , 02/29/2024 1:45 PM
== END | disposition home or self-care (01) ==
LOC: RADUSWWP 13:13
PROVIDERS: ATTEND Family Medicine
DX: E04.9 Nontoxic goiter, unspecified (principal)
CPT/HCPCS: 76536

== ENCOUNTER → 2024-03-06 | Outpatient (CLI) | payer MEDICARE ==
--- NOTE | 2024-03-06 13:13 | MM ---
Reason for Exam: Screening (asymptomatic). Last mammogram was performed 2 year(s) and 1 month(s) ago. Patient History: Menarche at age 13. First Full-Term at age 23. Left ovary removed at age 50. Right ovary removed at age 50. Hysterectomy at age 43. Postmenopausal. Other cancer, age 27. Hormonal Contraceptives for 10 years from age 17 until age 37. 12/09/2013, Benign Core Biopsy on the right side. 06/01/2001, Benign Stereotactic Core Biopsy on the right side. Risk Values: Leah 5 year model risk: 1.7%. NCI Lifetime model risk: 10.4%. Prior Study Comparison: 12/02/2019 Bilateral Screening Mammogram, [facility]. 01/08/2021 Bilateral Diagnostic Mammogram, [facility]. 02/09/2022 Bilateral MG 3D screening mammo w/cad, [facility]. Tissue Density: The breasts are almost entirely fatty. Findings: Analyzed By CAD. Right breast: There is no suspicious group of microcalcifications or new suspicious mass. Benign-appearing calcifications right breast. Left breast: There is no suspicious group of microcalcifications or new suspicious mass. Benign-appearing calcifications left breast. Overall Assessment: Benign, BI-RAD 2 Management: Screening Mammogram of both breasts in [address] [facility] will attempt to contact patient to return for supplemental views and ultrasound if indicated. Patient should continue monthly self-breast exams. A clinical breast exam by your physician is recommended on an annual basis. This exam should not preclude additional follow-up of suspicious palpable abnormalities. Note on Leah scores and lifetime risk: 1. A Leah score greater than 3% is considered moderate risk. If this is the case, consider specialist referral to assess eligibility for a risk reducing agent. 2. If overall lifetime risk for the development of breast cancer is 20% or higher, the patient may qualify for future screening with alternating mammogram and breast MRI. [facility], , 03/06/2024 12:49 PM. Electronically signed and approved by: Osman Ortiz DO
== END | disposition home or self-care (01) ==
LOC: RADMAMWWP 11:36
PROVIDERS: ATTEND Family Medicine
DX: Z12.31 Encounter for screening mammogram for malignant neoplasm of breast (principal); Z78.0 Asymptomatic menopausal state; Z90.722 Acquired absence of ovaries, bilateral
CPT/HCPCS: 77063; 77067

== ENCOUNTER → 2024-08-14 | Outpatient (CLI) | payer MEDICARE ==
[2024-08-14 16:24] LABS: Albumin 4.2 g/dL (3.8-4.9); Albumin/Globulin Ratio 1.68 Ratio (1.60-3.17); BUN/Creat Ratio 15.86 Ratio (12.00-20.00); Blood Urea Nitrogen 11.1 mg/dL (9.0-27.0); Carbon Dioxide 24.2 mmol/L (21.6-31.8); Chloride 104 mmol/L (96-109); Chol/HDL Ratio 3.77 Ratio; Globulin 2.5 g/dL (1.6-3.3); Glucose 127 mg/dL (70-110); LDL Cholesterol,Calculated 122.1 mg/dL (0.0-131.0); Potassium 4.3 mmol/L (3.5-5.5); Sodium 141 mmol/L (135-145); Total Bilirubin 0.6 mg/dL (0.3-1.2); Total Protein 6.7 g/dL (6.2-8.2)
[2024-08-14 16:25] LABS: ALT 24 U/L (8-44); AST 29 U/L (13-35); Alkaline Phosphatase 115 U/L (41-126)
[2024-08-14 18:31] LABS: Microalbumin Creatinine Ratio <8 mg/g Cr (0-30)
== END | disposition home or self-care (01) ==
LOC: LABWHC1 09:02
PROVIDERS: ATTEND Internal Medicine Endocrinology, Diabetes & Metabolism
DX: E11.65 Type 2 diabetes mellitus with hyperglycemia (principal)
CPT/HCPCS: 36415; 80053; 80061; 82043; 82570; 83036; 84443